=== PATIENT | male | born 1980 ===

== ENCOUNTER 2017-12-15 20:54 | Emergency (ER) | payer SELFPAY ==
[~2017-12-15] VITALS: Ht 167.6 cm; Wt 66.8 kg
[2017-12-15 21:00] VITALS: BP 141/92; TEMP 98
[2017-12-15 21:42] LABS: BASO % 0.3 % (0.0-2.0); EOS # 0.1 (0.0-0.7); EOS % 2.1 % (0-4.0); GRAN # 3.9 (1.4-6.5); GRAN % 59.7 % (42.2-75.2); HEMATOCRIT 46.7 % (42.0-52.0); HEMOGLOBIN 16.6 g/dl (13.5-18.0); LYMPH # 1.9 (1.2-3.4); MEAN CELL VOLUME 86 fl (80.0-100.0); MEAN CORPUSCULAR HEMOGLOBIN 31 pg (27.0-31.0); MEAN CORPUSCULAR HGB CONC 36 g/dl (33.0-37.0); MEAN PLATELET VOLUME 10.4 fl (7.4-10.4); MONO # 0.6 (0.1-0.6); MONO % 8.6 % (1.7-9.3); PLATELET COUNT 216 K/mm3 (130-400); RED BLOOD COUNT 5.43 M/mm3 (4.20-5.60); REDCELL DISTRIBUTION WIDTH-CV 12.9 % (11.5-14.5)
[2017-12-15 21:45] LABS: COLLECTION METHOD CLEAN CATCH
[2017-12-15 21:50] LABS: MUCOUS Present /lpf; PH 6 (5-8); SQUAMOUS EPITHELIAL 0-2 /hpf; URINE APPEARANCE Clear; URINE BACTERIA None Seen /hpf; URINE BILIRUBIN Negative (NEGATIVE); URINE BLOOD Negative (NEGATIVE); URINE COLOR Yellow; URINE GLUCOSE Negative (NEGATIVE); URINE KETONE Negative (NEGATIVE); URINE LEUKOCYTE ESTERASE Negative (NEGATIVE); URINE NITRATE Negative (NEGATIVE); URINE PROTEIN(semi-quant) Negative (NEGATIVE); URINE RBC 0-2 /hpf; URINE UROBILINOGEN >=4.0 mg/dL (NEGATIVE)
[2017-12-15 21:58] LABS: ALANINE AMINOTRANSFERASE 135 U/L (21-72); ALBUMIN 4.4 gm/dL (3.5-5.0); ALKALINE PHOSPHATASE 108 U/L (50-136); ANION GAP 15 mmol/L (7-16); AST,SGOT 47 U/L (15-37); BILIRUBIN,TOTAL 0.3 mg/dL (0.0-1.0); BLOOD UREA NITROGEN 9 mg/dL (9-20); CALCIUM 8.9 mg/dL (8.4-10.2); CARBON DIOXIDE 25 mmol/L (22-30); CHLORIDE 101 mmol/L (98-107); CREATININE, serum 0.55 mg/dL (0.66-1.25); GLUCOSE 110 mg/dL (74-106); LIPASE 43 U/L (23-300); POTASSIUM 3.8 mmol/L (3.4-5.0); SODIUM 141 mmol/L (137-145); TOTAL PROTEIN 8.8 gm/dL (6.4-8.2)
[2017-12-15 22:00] LABS: C-REACTIVE PROTEIN < 0.5 mg/dL (0.0-0.9)
[2017-12-15 23:50] VITALS: PULSE 65
== END 2017-12-16 00:05 | disposition home or self-care (01) ==
LOC: COL.ER 20:54
PROVIDERS: Physician Assistant
DX: R10.12 Left upper quadrant pain (principal)
CPT/HCPCS: J1170; J2405; J7030